=== PATIENT | male | born 1950 | race Caucasian/White ===

== ENCOUNTER 2017-11-28 18:32 | Emergency (ER) | payer BC ==
--- NOTE | 2017-11-28 18:35 | ER Report ---
History and Physical Time Seen By MD: 18:34 HPI/ROS CHIEF COMPLAINT: Right ring finger injury and deformity HISTORY OF PRESENT ILLNESS: 66-year-old male was cutting firewood. He was moving a trailer when he twisted his finger out of position. A popping sensation is obviously deformed at the PIP joint. Patient notes 4/10 pain. He took Aleve 2 hours prior to arrival with some improvement of his pain. He notes mild 2/10 pain. He denies any other injuries. There is no breaks in the skin. He also reports jamming his finger about 5 days ago. Allergies: Coded Allergies: No Known Drug Allergies (Unverified , 11/28/17) Home Meds No Active Prescriptions or Reported Meds Reviewed Nurses Notes: Yes Old Medical Records Reviewed: Yes Constitutional Vital Sign - Last 24 Hours 11/28/17 18:41 Temp 97.2 Pulse 76 Resp 16 B/P (MAP) 174/102 Pulse Ox 95 Physical Exam General appearance: Mild distress Respiratory: Chest is non tender, lungs are clear to auscultation. Cardiac: Regular rate and rhythm Extremities: Examination of the right hand reveals a very swollen right index finger at the PIP joint. All digits are neurovascularly intact. There is significantly decreased range of motion. DIFFERENTIAL DIAGNOSIS: After history and physical exam differential diagnosis was considered for sprain, strain, fracture, dislocation, contusion him a crush injury Medical Decision Making EKG/Imaging Imaging X-ray: Right hand, 3 views was obtained. I viewed the images myself on the PACS system. My interpretation of the images is: There is anterior dislocation at the PIP joint of the distal segment. There is no obvious fracture noted.. The radiologist interpretation had no clinically significant variation from this interpretation. X-ray: Right ring finger, 3 views was obtained. I viewed the images myself on the PACS system. My interpretation of the images is: Reduction of dislocation at the PIP joint. No fractures noted. The radiologist interpretation had no clinically significant variation from this interpretation. ED Course/Re-evaluation ED Course Patient was admitted to an examination room. H&P was done. The dental diagnoses was considered. On conical examination. Patient has right ring finger injury with deformity. Diagnostic x-rays are ordered. Patient with obvious dislocation at the PIP joint. Risks and benefits of reduction are discussed. Patient elects to proceed with verbal consent for closed reduction under digital block. Marcaine 0.5% plain was infiltrated on both sides of the digit in the webspace. Patient was observed for 10 minutes and then reduction was performed. Traction and mild angulation resulted in a quick popping sensation and immediate reduction of the dislocation. Patient was placed in aluminum padded splint by nursing staff. Splint was checked post splinting and his finger was neurovascularly intact. Procedure: Dislocation reduction. The right ring finger PIP dislocation was reduced in the usual fashion without complications. Post reduction the patient's neurovascular exam is normal. Post reduction x-ray demonstrates reduction of the joint to the anatomic position. The procedure was performed by myself. Decision to Disposition Date: Nov 28, 2017 Decision to Disposition Time: 19:59 Depart Departure Latest Vital Signs Vital Signs Date Time Temp Pulse Resp B/P (MAP) Pulse Ox O2 Delivery O2 Flow Rate FiO2 11/28/17 18:41 97.2 76 16 174/102 95 Impression: Primary Impression: Dislocation, finger, interphalangeal joint Condition: Improved Disposition: HOME OR SELF-CARE Referrals: HALEY MATTA MD New Scripts No Active Prescriptions or Reported Meds Patient Instructions: Finger Dislocation (ED) Additional Instructions: Take Aleve 2 tablets twice daily with food Apply ice packs to your finger Wear splint for 2 weeks Follow-up with Dr. Matta orthopedics/hand surgeon at [facility] in 4 -7 days. His information was provided Problem Qualifiers Primary Impression: Dislocation, finger, interphalangeal joint Encounter type: initial encounter Qualified Codes: S63.279A - Dislocation of unspecified interphalangeal joint of unspecified finger, initial encounter ZANDRA ADLER DO Nov 28, 2017 18:35
[2017-11-28 18:41] VITALS: BP 174/102
--- NOTE | 2017-11-28 19:15 | RADIOLOGY IMAGING REPORT ---
FACILITY: [facility] - [place] PATIENT NAME: Jose A Sosa : 1950 MR: [id number] V: [id number] EXAM DATE: ORDERING PHYSICIAN: ZANDRA ADLER TECHNOLOGIST: Location: [facility] [place] Patient: Jose A Sosa : 1950 Visit/Account:[id number] Date of Sevice: 11/28/2017 HAND COMPLETE RIGHT COMPARISONS: None. ADDITIONAL PERTINENT HISTORY: Injury with ring finger deformity FINDINGS: Osseous structures: Negative. Joint spaces: Palmar and radial displacement at the PIP joint of the right ring finger compatible wit h a dislocation at the PIP joint of the right ring finger. Surrounding soft tissues: Soft tissue swelling about the PIP joint of the right ring finger. IMPRESSION: 1. Palmar and radial dislocation at the PIP joint of the right ring finger. 2. No evidence of underlying bony fracture. Report Dictated By: Andi Lundy MD at 11/28/2017 7:09 PM Report E-Signed By: Andi Ludny MD at 11/28/2017 7:11 PM WSN:[id number]
--- NOTE | 2017-11-28 20:13 | RADIOLOGY IMAGING REPORT ---
[place] [facility] [place] NAME: Jose A Sosa : 1950 MR: [id number] V: [id number] EXAM DATE: ORDERING PHYSICIAN: ZANDRA ADLER TECHNOLOGIST: Location: [facility] Patient: Jose A Sosa : 1950 Visit/Account:[id number] Date of Sevice: 11/28/2017 FINGER RIGHT 4TH DIGIT HISTORY: Post reduction of PIP dislocation. COMPARISON: Earlier same day at 6:47 PM. TECHNIQUE: PA, oblique, and lateral views of the right fourth digit. FINDINGS: There has been interval reduction of the dislocated proximal interphalangeal joint. There i s no fracture. There is residual diffuse soft tissue swelling centered at the proximal interphalangea l joint. There is mild degenerative change of the distal interphalangeal joint. IMPRESSION: 1. Reduction of the dislocated fourth proximal interphalangeal joint without fracture. 2. Soft tissue swelling. Report Dictated By: Flores Altman at 11/28/2017 8:08 PM Report E-Signed By: Flores Altman at 11/28/2017 8:10 PM WSN:[id number]
== END 2017-11-28 20:15 | disposition home or self-care (01) ==
LOC: ER 19:07
DX: S63.279A Dislocation of unspecified interphalangeal joint of unspecified finger, initial encounter (principal)
CPT/HCPCS: 99283